=== PATIENT | female | born 1990 | race Caucasian/White ===

== ENCOUNTER 2021-01-04 19:30 | Emergency (ER) | payer SELFPAY ==
[2021-01-04 19:33] VITALS: BP 147/91; PULSE 95; RESP 18; TEMP 36.8; O2SAT 100; BMI 30.4
--- NOTE | 2021-01-04 19:44 | ECG_ITS ---
Test Date: 2021-01-04 Pat Name: KHANG DARBY Department: Room: Gender: Female Door Manager: : 1990 Requested By: Amari Ghotra Order Number: [id number] David MD: EDGAR ORTEGA Measurements Intervals [place] Rate: 96 P: 41 HI: 160 QRS: 6 QRSD: 89 T: 8 QT: 350 QTc: 444 Interpretive Statements SINUS RHYTHM No previous ECG available for comparison Electronically Signed On 01-06-2021 22:26:16 CDT by EDGAR ORTEGA [id number]
[2021-01-04 19:45] VITALS: BP 127/72; PULSE 98; RESP 20; O2SAT 97
[2021-01-04] MEDS: LORazepam 2 mg/mL INJ 1 mL 1 MG IVP (19:52)
--- NOTE | 2021-01-04 20:37 | ED_ITS ---
HPI - Anxiety General: Chief Complaint: Anxiety Stated Complaint: PANIC ATTACK Time Seen by Provider: 01/04/21 19:32 History of Present Illness: HPI narrative: The patient is a 30-year-old female with past medical history anxiety who comes to the ER complaining of a panic attack while she was working today. She says she has had panic attacks in the past but this 1 felt different and worse. She felt lightheaded, dizzy, had pressure on her chest and felt like she needed to be seen in the ER for evaluation. She does not take any medications for this and does not see any medical providers. She says her last menstrual period was a month ago but she is highly irregular and takes tests nearly every month to confirm whether or not she is . She is unable to urinate at this time. MD complaint: anxiety Severity: mild Place: work History of similar episodes: Yes Associated symptoms: Deny chest pain, confusion, headache(s) or palpitations Review of Systems General: Reports: 10 or more systems reviewed and unremarkable except in HPI and below Const: Denies: fatigue Eyes: Denies: change in vision, blurry vision or eye redness ENMT: Denies: throat pain, swelling of lips/tongue, ear or mastoid pain or caity al congestion Card: Denies: chest pain, palpitations, irregular heart rhythm, edema, dyspnea on exertion or orthopnea Resp: Denies: dyspnea, productive cough or non-productive cough GI: Denies: abdominal pain, diarrhea or GI cramping : Denies: flank pain, difficulty voiding, urinary frequency or urinary urgency Musc: Denies: neck pain, back pain, extremity pain, joint pain, joint redness, limited range of motion or muscle weakness Skin/Breast: Denies: rash, pruritus, erythema, skin pain or skin tenderness Neuro: Denies: headache(s), numbness in extremities, weakness in extremities, sensory changes, difficulty walking, dizziness, confusion or Slurred speech present Psych: Reports: anxiety; Denies: depression Endo: Denies: polyuria All/Imm: Denies: urticaria, throat swelling or tongue swelling Physical Exam Const: COMMON NORMALS: no acute distress, average body habitus, patient oriented x3, no limitations, healthy appearing, alert and well nourished GENERAL APPEARANCE: cooperative, comfortable, well kempt, well developed and anxious ORIENTATION/CONSCIOUSNESS: Yes awake, Yes oriented to person, Yes oriented to place and Yes oriented to time HENMT: COMMON NORMALS: normocephalic, external ears normal and Normal external nose present HEAD & SCALP: normal to inspection and normocephalic NOSE: Normal external nose present EXTERNAL EAR: Yes external ears normal MOUTH: Normal oral and palatal mucosa present THROAT: posterior oropharynx normal Eye: COMMON NORMALS: Equal, round and reactive pupils present and EOMs intact bilaterally GENERAL EYE: appearance normal, both eyes and all related structures PUPIL: Yes Equal, round and reactive pupils present Neck/C-Spine: COMMON NORMALS: full ROM, no lymphadenopathy, no meningeal signs and no JVD GENERAL: Yes normal visual inspection Lymph: LYMPHATIC: no lymphadenopathy noted Chest: COMMONS NORMALS: normal inspection of the chest and normal palpation of entire chest wall Resp: COMMON NORMALS: normal respiratory effort, No retractions, No use of accessory muscles, clear to auscultation bilaterally and percussion normal EFFORT & INSPECTION: Yes able to speak in complete sentences AUSCULTATION: clear to auscultation bilaterally PERCUSSION: percussion normal Cardio: COMMON NORMALS: no JVD, regular rate, regular rhythm, S1 normal heart sound present, S2 normal heart sound present and Peripheral pulses 2+ throughout RATE: regular rate RHYTHM: regular rhythm HEART SOUNDS: S1 normal heart sound present and S2 normal heart sound present PERIPHERAL PULSES: Peripheral pulses 2+ throughout GI: COMMON NORMALS: Normal to inspection, nondistended, normoactive bowel sounds present, Soft to palpation, non-tender and no masses INSPECTION: Yes normal to inspection PALPATION: Yes Soft to palpation : COMMON NORMALS: Yes no CVA tenderness BLADDER/KIDNEY EXAM: Yes no CVA tenderness Back/Pelvis: COMMON NORMALS: no CVA tenderness, thoracic and lumbar spine normal to inspection, no thoracic nor lumbar tenderness and thoraco-lumbar ROM normal Extremity: COMMON NORMALS: normal to inspection, full ROM, capillary refill normal, no joint enlargement and no pedal edema GENERAL: Yes normal exam except as noted Neuro: COMMON NORMALS: patient oriented x3, CN's II-XII intact bilaterally, moves all extremities, no focal motor deficits, no sensory deficits noted and gait normal SENSORIUM/ORIENTATION: Yes alert, Yes oriented to person, Yes oriented to place and Yes oriented to time MENINGEAL SIGNS: Yes no meningeal signs Psych: COMMON NORMALS: mental status grossly normal, Normal thought process present, cooperative, normal affect and speech normal APPEARANCE: Yes well kempt ATTITUDE: Yes calm SPEECH: Yes normal speech MOOD & AFFECT: Yes anxious THOUGHT PROCESS: Normal thought process present Skin: COMMON NORMALS: no rashes or lesions noted GENERAL SKIN EXAM: no rashes or lesions noted Course Vital Signs: Vital signs: Vital Signs Temperature 98.3 F 01/04/21 19:33 Pulse Rate 98 01/04/21 19:45 Respiratory Rate 20 H 01/04/21 19:45 Blood Pressure 127/72 01/04/21 19:45 Pulse Oximetry 97 01/04/21 19:45 MDM - Anxiety MDM Narrative: Medical decision making narrative: The patient came to the ER complaining of a panic attack. She was given IV Ativan which improved her symptoms significantly. I offered her a test initially which she accepted however she was unable to urinate during her time here and her symptoms are better. I will discharge her with a few tablets of Ativan and recommend she go home and take a test before taking them. Case management referral placed for primary care physician Discharge Plan Discharge Patient Disposition: Home Condition: Stable Prescriptions: No Action Advil 200 mg Tablet 200 - 400 mg PO Q6H PRN (Reason: Pain) RF: 0 Discharge Orders: Discharge ED (Routine); Ordered 01/04/21 Ordered By: Amari Ghotra Discharge Diet: Advance as tolerated Discharge Activity: Resume usual activity Patient Instructions: Opioid Safety Activity Restrictions/Additional Instructions: You have had a panic attack which has been improved with Ativan. Please take the Ativan tablets at home to help with your panic attacks in the future. Only take them with severe symptoms and return to the ER with worsening symptoms. Please go home and take a test prior to using the Ativan prescription. I have placed a case management referral to help you set up with a primary care physician. They should be calling you Thursday to help set up this appointment. Coding Level of Care Code ED [employer] for [facility] Exam Comprehensive
[2021-01-04 20:56] VITALS: BP 138/81; PULSE 90; RESP 16; O2SAT 97
--- NOTE | 2021-01-08 13:31 | DCPLANNER ---
insurance territory manager had message to speak with patient about getting established with a primary care physician. insurance territory manager spoke with patient, she stated that yes she would like to get established with a primary care physician, but she would call family preservation caseworker back after she looks at her work schedule to see what days she would be available to see a physician.
== END 2021-01-04 20:58 | disposition home or self-care (01) ==
PROVIDERS: Emergency Provider Family Medicine
DX: F41.0 Panic disorder [episodic paroxysmal anxiety] (principal)
CPT/HCPCS: 93005; 96374; 99283; J2060